=== PATIENT | male | born 1945 | race Caucasian/White ===

== ENCOUNTER → 2022-12-11 09:16 | Outpatient (CLI) | payer MEDICARE, OTHER, SELFPAY ==
--- NOTE | 2022-12-11 | DI.ECHO.S_ITS ---
[facility]---------+ [facility] +---------+ : : [address] [place] : : : : [id number] : : : : Phone: [phone]+ Echocardiogram Report + + :Name: MO SHIELDS Study Date: 12/11/2022 Height: 72 in : :[facility] ReadingLocation: Weight: 175 lb : : Gender: Male BSA: 2.0 m2 : :: 1945 Age: 77 yrs BP: 151/92 mmHg: :Reason For Study: ATRAIL FIBRILLATION : :Ordering Physician: ERASMO, : :NISH Chung Performed By: Vivian Griffin : :Referring: NISH ZIMMERMAN : + + Interpretation Summary The ejection fraction is estimated to be 60-65%. There is severe biatrial enlargement. There is mild tricuspid regurgitation. The right ventricular systolic pressure is estimated to be at least 32 mmHg based on an estimated right atrial pressure of 3 mm Hg. Procedure: A two-dimensional transthoracic echocardiogram with color flow and Doppler was performed. The study quality was technically adequate. There is no prior echocardiogram noted for this patient. The patient was in atrial fibrillation with heart rates between 75-90 bpm during the exam. The patient had occasional PVCs during the exam. Left Ventricle: The left ventricle is normal in size and wall thickness. The ejection fraction is estimated to be 60-65%. Left ventricular wall motion is normal. Diastolic function could not be accurately assessed due to atrial fibrillation. Right Ventricle: The right ventricle is normal in size and function. Atria: The left atrium is severely dilated. There is severe biatrial enlargement. The right atrium is severely dilated. There is no Doppler evidence for an interatrial shunt. Mitral Valve: The mitral valve is normal in structure and function. There is mild mitral annular calcification. There is mild to moderate mitral regurgitation. There are multiple regurgitant jets present. Aortic Valve: The aortic valve is trileaflet. The aortic valve opens well. There is no aortic valve stenosis. No aortic regurgitation is present. Tricuspid Valve: The tricuspid valve is normal in structure and function. There is mild tricuspid regurgitation. The right ventricular systolic pressure is estimated to be at least 32 mmHg based on an estimated right atrial pressure of 3 mm Hg. Pulmonic Valve: The pulmonic valve leaflets are thin and pliable; valve motion is normal. There is mild pulmonic regurgitation. Great Vessels: The aortic root is normal size. The dimensions of the ascending aorta are normal. The IVC is of normal diameter and collapses greater than 50% with a sniff. This suggests a low right atrial pressure of 3 mm Hg. Pericardium/ Pleura There is no pericardial effusion. There is no pleural effusion. MMode/2D Measurements & Calculations LVIDd: 3.8 cm LVOT diam: 2.3 cm LVIDs: 2.3 cm Ao root diam: 2.9 cm FS: 39.1 % asc Aorta Diam: 3.2 cm IVSd: 0.78 cm LVPWd: 1.0 cm LV caraballo. diameter/BSA (cm/m^2): 1.9 LV sys. diameter/BSA (cm/m^2): 1.1 LA A2 area: 27.2 cm2 RA long axis: 7.0 cm LA A4 area: 29.4 cm2 RA area: 28.4 cm2 LA length (vol): 6.8 cm RA vol: 97.9 ml LA vol: 99.8 ml RA : 48.6 ml/m2 LA vol index: 49.6 ml/m2 IVC diam: 1.7 cm RVD1 (basal): 3.8 cm TAPSE: 1.8 cm Doppler Measurements & Calculations Ao V2 max: 98.2 cm/sec LVOT Max Ananda: 67.7 cm/sec Ao V2 mean: 71.1 cm/sec LV V1 max P.8 mmHg Ao max P.9 mmHg LV V1 VTI: 14.9 cm Ao mean P.2 mmHg DAIN(I,D): 3.1 cm2 Ao V2 VTI: 20.0 cm DAIN(V,D): 2.9 cm2 sev ratio: 0.75 DAIN indexed to BSA (cm^2/m^2): 1.5 MV E max ananda: 100.4 cm/sec TR max ananda: 269.0 cm/sec MV A max ananda: 1.3 cm/sec TR max P.9 mmHg MV E/A: 74.8 PA V2 max: 89.9 cm/sec Med Peak E' Ananda: 6.1 cm/sec PA V2 mean: 67.8 cm/sec E/E' med: 16.4 PA mean P.0 mmHg Lat Peak E' Ananda: 10.1 cm/sec PA pr(Accel): 41.3 mmHg E/E' lat: 9.9 E/e' average: 13.1 MV dec time: 0.12 sec SV(LVOT): 61.7 ml Reading Physician:05:06 PM
== END ==
PROVIDERS: Referring Provider Family Medicine; Visit Provider Family Medicine
DX: I48.91 Unspecified atrial fibrillation (principal); I08.1 Rheumatic disorders of both mitral and tricuspid valves
CPT/HCPCS: 93306